=== PATIENT | male | born 1975 | race Two or more races ===

== ENCOUNTER → 2017-11-07 | Emergency (ER) | payer OTHER ==
[~2017-11-07] VITALS: Ht 175.3 cm; Wt 102.1 kg
[~2017-11-07] MED LIST: KETO10TA2 PO; NEURONTIN300 MG; ORPH100T PO
== END | disposition left against medical advice (07) ==
LOC: ER 12:01
DX: Z53.20 Procedure and treatment not carried out because of patient's decision for unspecified reasons (principal)

== ENCOUNTER 2017-11-18 21:36 | Emergency (ER) | payer OTHER ==
[~2017-11-18] VITALS: Ht 175.3 cm; Wt 106.1 kg
[2017-11-18] MEDS ORDERED: PROSCAR5 MG (22:51)
[2017-11-18] MEDS ORDERED: VISTARIL25 MG (22:51)
[2017-11-19] MEDS ORDERED: FLONASE ALLERG9.9 ML NASAL (01:38)
[2017-11-19] MEDS ORDERED: ETODOLAC500 MG PO (01:38)
[2017-11-19] MEDS ORDERED: ORPHENADRINE C100 MG PO (01:38)
== END 2017-11-19 01:51 | disposition home or self-care (01) ==
LOC: ER 21:36
DX: R09.81 Nasal congestion (principal); M62.830 Muscle spasm of back

== ENCOUNTER → 2018-02-17 | Emergency (ER) | payer OTHER ==
[~2018-02-17] VITALS: Ht 175.3 cm; Wt 77.1 kg
[~2018-02-17] MED LIST changes: +DICY20TA PO; +ETODOLAC500 MG PO; +FLONASE ALLERG9.9 ML NASAL; +INTESTINEX680 M1 PO; +LOPERAMIDE2 MG PO; +ORPHENADRINE C100 MG PO; +PROSCAR5 MG; +VISTARIL25 MG; +ZANTAC300 MG PO
== END | disposition home or self-care (01) ==
LOC: ER 00:40
DX: K52.9 Noninfective gastroenteritis and colitis, unspecified (principal); R10.32 Left lower quadrant pain

== ENCOUNTER → 2018-03-09 | Emergency (ER) | payer OTHER | END | disposition left against medical advice (07) | LOC: ER 22:09 | DX: Z53.20 Procedure and treatment not carried out because of patient's decision for unspecified reasons (principal) ==